=== PATIENT | male | born 1955 | race Caucasian/White ===

== ENCOUNTER 2021-08-13 07:40 | Day surgery (SDC) | payer OTHER ==
[~2021-08-13] VITALS: Ht 180.3 cm; Wt 102.6 kg
--- NOTE | 2021-08-13 08:20 | NUR ---
Patient ambulated back to bay #3 without difficulty. No assistive devices. Consent reviewed and signed. Patient verbalized understanding of procedure. Warm blanket provided. Non-slip socks are on. First & last name + verfied [facility] patient. States no medications or supplements taken. SEE PHSYICAL ASSESSMENT.
[2021-08-13 08:57] VITALS: BP 135/93; PULSE 75; TEMP 98.3
[2021-08-13 11:05] VITALS: BP 129/79; PULSE 73
--- NOTE | 2021-08-13 11:05 | NUR ---
1105- PATIENT BROUGHT BACK TO ENDO ROOM 5 VIA CART. AMBULATED TO CHAIR WITHOUT DIFFICULTY. PLACED ON MONITORS, VITAL SIGNS STABLE. AT BEDSIDE TO DRIVE PATIENT HOME. DENIES PAIN OR NAUSEA. STATES HE WOULD LIKE SODA AND TOAST. ROSINA GIPSON AT BEDSIDE FOR REPORT. WARM BLANKET PROVIDED, CALL [facility] WITHIN REACH. WILL MONITOR. 1120- VITAL SIGNS STABLE TOLERATING FOOD AND DRINK WITHOUT DIFFICULTY. AWAITING TO SPEAK WITH DR. VEGAS. 1135- PATIENT STATES HE FEELS READY TO GO HOME. DISCHARGE INSTRUCTIONS REVIEWED. IV REMOVED, INTACT. PATIENT TO GET DRESSED AT THIS TIME. 1150- PATIENT BROUGHT DOWN TO LOBBY VIA WHEEL CHAIR. ALL BELONGINGS IN HAND. PLACED IN WIFES CAR.
[2021-08-13 11:20] VITALS: BP 126/84; PULSE 75
[2021-08-13 11:35] VITALS: BP 124/81; PULSE 70
== END 2021-08-13 11:50 | disposition home or self-care (01) ==
LOC: SDCO 07:40
DX: Z12.11 Encounter for screening for malignant neoplasm of colon (principal); D12.5 Benign neoplasm of sigmoid colon; K57.30 Diverticulosis of large intestine without perforation or abscess without bleeding; K64.0 First degree hemorrhoids; K21.9 Gastro-esophageal reflux disease without esophagitis
CPT/HCPCS: J2704; J3010; J7120